=== PATIENT | male | born 1955 | race Caucasian/White ===

== ENCOUNTER 2025-07-20 12:58 | Emergency (ER) | payer BC ==
[~2025-07-20] VITALS: Ht 172.7 cm; Wt 73.9 kg
[2025-07-20 12:58] VITALS: BP 143/77
[2025-07-20 13:49] VITALS: BP 143/77; TEMP 97.8; O2SAT 99
== END 2025-07-20 13:53 | disposition home or self-care (01) ==
LOC: ER 12:58
DX: L76.32 Postprocedural hematoma of skin and subcutaneous tissue following other procedure (principal); D17.24 Benign lipomatous neoplasm of skin and subcutaneous tissue of left leg; M79.604 Pain in right leg; R20.0 Anesthesia of skin; Y84.8 Other medical procedures as the cause of abnormal reaction of the patient, or of later complication, without mention of misadventure at the time of the procedure; Y82.8 Other medical devices associated with adverse incidents
CPT/HCPCS: A4606; A4663